=== PATIENT | female | born 1995 | race Caucasian/White ===

== ENCOUNTER 2018-09-21 00:22 | Emergency (ER) | payer OTHER ==
[2018-09-21] MEDS: TETRACAINE 0.5% 4 ML OPH LEFT EYE (01:30)
[2018-09-21] MEDS: FLUORESCEIN STRIP LEFT EYE (01:30)
[2018-09-21] MEDS: ERYTHROMYCIN 1 GM OPH OINT LEFT EYE (02:00)
== END 2018-09-21 02:29 | disposition home or self-care (01) ==
LOC: FTE 00:22
DX: S05.02XA Injury of conjunctiva and corneal abrasion without foreign body, left eye, initial encounter (principal); X58.XXXA Exposure to other specified factors, initial encounter; Y92.9 Unspecified place or not applicable
CPT/HCPCS: 99283; Z7610